=== PATIENT | male | born 1935 | race Caucasian/White ===

== ENCOUNTER 2019-02-06 09:24 | Outpatient (CLI) | payer MEDICARE, BC, OTHER ==
--- NOTE | 2019-02-06 11:26 | ULT ---
BILATERAL RENAL ULTRASOUND COMPLETE: Date: 02/06/19 HISTORY: Chronic kidney disease. FINDINGS: Right kidney measures 12.7 x 7.3 x 6.0 cm. Left kidney measures 11.5 x 6.4 x 5.7 cm. There is a 0.7 x 0.8 x 1.0 cm left renal cortical cyst. There is a somewhat small urinary bladder. There is very marked enlargement of the prostate gland carline suring 3.8 x 5.4 x 6.9 cm, elevating the floor of the bladder. IMPRESSION: Markedly enlarged prostate gland. Small left renal cyst. No renal hydronephrosis or other acute proce ss. POS: [facility]
== END 2019-02-06 09:25 | disposition home or self-care (01) ==
LOC: BICULT 09:24
PROVIDERS: ATTEND Internal Medicine Nephrology
DX: N18.4 Chronic kidney disease, stage 4 (severe) (principal); N28.1 Cyst of kidney, acquired; N40.0 Benign prostatic hyperplasia without lower urinary tract symptoms
CPT/HCPCS: 76770